=== PATIENT | male | born 1950 | race Caucasian/White ===

== ENCOUNTER 2020-01-26 14:15 | Inpatient (IN) | payer MEDICARE, OTHER ==
[~2020-01-26] VITALS: Ht 172.7 cm; Wt 72.0 kg
[2020-01-26] VITALS (35 sets, daily range): BP systolic 104–128; BP diastolic 45–64
[2020-01-26] MEDS ORDERED: DEXTROSE (50%) 50ML SYRG IV PRN (15:45)
[2020-01-26] MEDS ORDERED: FUROSEMIDE 100 MG/10ML VIAL IV ONE (16:15)
--- NOTE | 2020-01-26 16:22 | NUR ---
Per Pharmacy, no replacement for patients gout medicine Uloric since usually they are on this medication if they cannot tolerate allopurinol.
[2020-01-26] MEDS: InsuLIN REG 1unit/0.01ml Soln (100units/ml) SC SCH ×2 (17:00→23:56)
[2020-01-26] MEDS: SODIUM CHLORIDE 0.9% 1,000 ML IV SCH (17:00)
[2020-01-26] MEDS: ACCU-CHEK COMFORT CURVE STRIP VI SCH ×2 (17:00→23:55)
[2020-01-26 17:25] LABS: Basophils # (auto) 0 10 ^3/uL (0-0.2); Basophils % (auto) 0.2 % (0.0-2.0); Eosinophils # (auto) 0 10 ^3/uL (0-0.8); Hematocrit 29.8 % (41.0-53.0); Hemoglobin 9.9 g/dL (13.5-17.5); Lymphocytes # (auto) 0.2 10 ^3/uL (0.4-5.4); Lymphocytes % (auto) 4.1 % (10.0-50.0); Mean Corpuscular Hemoglobin 32.6 pg (28.0-32.0); Mean Corpuscular Hgb Conc. 33.1 g/dL (32.0-36.0); Mean Corpuscular Volume 98.2 fL (80.0-100.0); Monocytes # (auto) 0.5 10 ^3/uL (0-1.3); Monocytes % (auto) 10.1 % (0.0-12.0); Neutrophils # (auto) 4.6 10 ^3/uL (1.6-8.6); Neutrophils % (auto) 85.6 % (37.0-80.0); Platelet Count (auto) 144 10^3/uL (140-450); Red Blood Cells 3.04 10^6/uL (4.5-5.90); Red Cell Distribution Width 15.9 % (11.8-14.3); White Blood Cell 5.4 10^3/uL (4.4-10.8)
[2020-01-26 17:44] LABS: BUN/Creatinine Ratio 21.6; Calcium 8.3 mg/dL (8.5-10.1); Phosphorus 4.4 mg/dL (2.5-4.90); Potassium 4.9 mmol/L (3.5-5.1)
--- NOTE | 2020-01-26 19:00 | NUR ---
Report given to Karime PRITCHETT Endorsed care, patient on NC 8 L RR 20 SPO2 98% in no signs of distress, sleeping upright in bed. Patient recent transfer from [facility] per Dr. Bates. Calls x3 to Dr. Michelle, patient primary physician for admit orders. No call back. Dr. Bates did over the phone medication reconciliation list from [facility]. Per Pharmacy could not put in GOUT medicine with no replacment. RN held Insulin because patient did not eat dinner, and patient has diabetic pump - did not want to make patient hypoglycemic, endorsed to jennifer PRITCHETT for assessment. Patient had fever of 102 at ER in [facility], negative COVID rapid, recommended post chest xray results possible PCR in house for safety. Patient has phone bedside, son is contact and has brought patient belongings as requested. Patient had uppper/lower dentures in mouth. Patient belongings endorsed to keiry PRITCHETT.
--- NOTE | 2020-01-26 19:08 | NUR ---
RN called Dr. Bello, for critical lab result .
--- NOTE | 2020-01-26 19:45 | NUR ---
Opening Shift Note received report from Dave PRITCHETT. Pt is AAOx4, sitting up in bed watching TV. Pt oriented to staff and POC. Pt is good historian. Pt stated he went to [facility] due to progressively increased SOB. Pt states he is on home o2 at 3L. Pt states these episodes of SOB have happened before due to his CHF and COPD. Pt's pertinent history is CAD, CHF, COPD, DM, HTN. Pt had Nancy test at [facility] which was negative. Pt placed on airborne precautions and [facility] in house COVID test sent to lab per protocol. Pt denies any SOB at the moment and is currently at 8L NC with an spo2 of 96%. Pt denies any pain and any other complaints at this time. Bed is locked at lowest position, side rails are up. Will continue to monitor Addendum: 01/27/20 at 0043 by ELICEO FLOREZ RN RN Pt has device to tight lower abdomen. Per patient this is a "[email or web address]" and it measures his blood sugars at home
--- NOTE | 2020-01-26 21:27 | NUR ---
returned call went over all admission orders already in place from Dr. Bates and Dr. Bynum, no changes. New orders for pain and Nausea, standard.
[2020-01-26] MEDS ORDERED: ONDANSETRON HCL 4 MG/2 ML VIAL IV PRN (21:30)
[2020-01-26] MEDS ORDERED: NITROGLYCERIN 0.4 MG SL TAB SL PRN (21:30)
[2020-01-26] MEDS ORDERED: MORPHINE SULF INJ 2 MG/ML SYRINGE 1ML IV PRN (21:30)
[2020-01-26] MEDS: SODIUM BICARBONATE 650 MG TAB PO SCH (21:43)
[2020-01-26] MEDS: CARVEDILOL 3.125 MG TAB PO SCH (21:44)
[2020-01-26] MEDS: ATORVASTATIN 20 MG TAB PO SCH (21:44)
[2020-01-26] MEDS: cefTRIAXone 1GM/50ML D5W 50 ML IV SCH (21:55)
--- NOTE | 2020-01-26 21:56 | NUR ---
BS 200
[2020-01-26] MEDS ORDERED: cefTRIAXone SOD 500 MG VL IV ONE (22:00)
--- NOTE | 2020-01-26 23:01 | NUR ---
COVID test and Urine sent to lab
[2020-01-26 23:29] LABS: Urine Bacteria NONE SEEN /hpf (None Seen); Urine Blood 1+ /uL (Negative); Urine Specific Gravity 1.012 (1.001-1.035); Urine WBC 2 /hpf (0 - 3)
[2020-01-26 23:44] LABS: Protein, Urine 105.5 mg/dL (0.0-11.9)
[2020-01-27] VITALS (92 sets, daily range): BP systolic 101–138; BP diastolic 36–97
--- NOTE | 2020-01-27 00:41 | NUR ---
TORIBIO Mix [phone]
--- NOTE | 2020-01-27 00:42 | NUR ---
Patients phone number [phone]
--- NOTE | 2020-01-27 00:49 | NUR ---
Valuables form completed at this time
--- NOTE | 2020-01-27 01:28 | NUR ---
Linen Change Refusal Pt stated he did not want a linen change or bath at this time.
--- NOTE | 2020-01-27 04:30 | NUR ---
Blood drawn and sent to lab
--- NOTE | 2020-01-27 05:00 | NUR ---
Complete linen change completed, new gown provided. Denture cup, mouthwash, toothbrush and chap stick provided per patient request.
--- NOTE | 2020-01-27 05:05 | NUR ---
Pt out of bed to chair Pt tolerated well. Spo2 >95%. Steady gait. Will continue to monitor.
[2020-01-27 05:07] LABS: Basophils # (auto) 0 10 ^3/uL (0-0.2); Basophils % (auto) 0.4 % (0.0-2.0); Eosinophils # (auto) 0 10 ^3/uL (0-0.8); Hemoglobin 8.3 g/dL (13.5-17.5); Monocytes # (auto) 0.5 10 ^3/uL (0-1.3); Neutrophils # (auto) 4.1 10 ^3/uL (1.6-8.6)
[2020-01-27 05:09] LABS: Hematocrit 24.2 % (41.0-53.0); Lymphocytes # (auto) 0.2 10 ^3/uL (0.4-5.4); Lymphocytes % (auto) 4.7 % (10.0-50.0); Mean Corpuscular Hemoglobin 33.2 pg (28.0-32.0); Mean Corpuscular Hgb Conc. 34.2 g/dL (32.0-36.0); Mean Corpuscular Volume 96.9 fL (80.0-100.0); Monocytes % (auto) 10.1 % (0.0-12.0); Neutrophils % (auto) 84.8 % (37.0-80.0); Nucleated Red Blood Cells % 0.3 %; Platelet Count (auto) 122 10^3/uL (140-450); White Blood Cell 4.8 10^3/uL (4.4-10.8)
[2020-01-27 05:26] LABS: % Iron Saturation 4.6 % (20-55); Calcium 7.8 mg/dL (8.5-10.1); Potassium 4.5 mmol/L (3.5-5.1)
[2020-01-27] MEDS: InsuLIN REG 1unit/0.01ml Soln (100units/ml) SC SCH ×4 (06:38→22:19)
[2020-01-27] MEDS: ACCU-CHEK COMFORT CURVE STRIP VI SCH ×4 (06:38→22:20)
[2020-01-27] MEDS: ACETAMINOPHEN 325 MG TAB PO PRN ×2 (06:51→16:31)
[2020-01-27] MEDS: SODIUM CHLORIDE 0.9% 1,000 ML IV SCH (06:53)
--- NOTE | 2020-01-27 07:30 | NUR ---
REPORT REPORT RECEIVED FROM OWEN RNELICEO. VISUALIZED PT THROUGH [facility] [employer] PT IN ISOLATION FOR R/O COVID. PT STATES HE IS "OKAY". CONTINUE TO MONITOR.
--- NOTE | 2020-01-27 08:20 | NUR ---
ASSESSMENT PT AWAKE AND A/O X4. ABLE TO REPOSITION SELF IN BED. MOVES ALL EXTREMITIES WELL. LUNGS CLEAR THROUGHOUT. O2 AT 4 L/M VIA NC WITH O2 SAT OF 99% . TURNED O2 TO 3 L/M AND WILL CONTINUE TO MONITOR. ABD SOFT WITH + BOWEL SOUNDS. LAST BM WAS 01/25. DIAZ CATHETER DRAINING CLEAR YELLOW URINE. PT DENIES ANY PAIN OR SOB. IVF INFUSING WITH IV SITE CLEAR. CONTINUE TO MONITOR.
[2020-01-27] MEDS: cefTRIAXone 1GM/50ML D5W 50 ML IV SCH ×2 (09:03→22:17)
[2020-01-27] MEDS: AZITHROMYCIN 500MG/ 250ML 250 ML IV SCH (09:42)
--- NOTE | 2020-01-27 10:15 | NUR ---
TOWBOAT OPERATOR VISIT PT SEEN AND EXAMINED BY FORREST SALAZAR NP, FOR DR TSE. UPDATED HER ON THE PT'S CURRENT CONDITION AND 2 OF HIS HOME MEDS NOT CURRENTLY ORDERED.
--- NOTE | 2020-01-27 10:20 | NUR ---
MEDS PT GIVEN SCHEDULED MEDS. PT DENIES ANY PAIN OR SOB. CONTINUE TO MONITOR.
[2020-01-27] MEDS: SODIUM BICARBONATE 650 MG TAB PO SCH ×2 (10:45→22:19)
[2020-01-27] MEDS: ASPirin 81 mg TAB PO SCH (10:45)
[2020-01-27] MEDS: CARVEDILOL 3.125 MG TAB PO SCH ×2 (10:46→22:20)
[2020-01-27] MEDS: ISOSORBIDE DINITRATE 10 MG TAB PO SCH (10:46)
[2020-01-27] MEDS: CLOPIDOGREL BISULFATE 75 MG TAB PO SCH (10:47)
[2020-01-27] MEDS ORDERED: FUROSEMIDE 20 MG/2 ML VIAL IV ONE ×2 (11:15)
--- NOTE | 2020-01-27 11:16 | NUR ---
COVID PCR PT'S COVID PCR TEST IS NEGATIVE AND PT TAKEN OFF OF ISOLATION.
--- NOTE | 2020-01-27 12:30 | NUR ---
PT'S ACCUCHECK OF 299 AND PT GIVEN 6 UNITS OF REGULAR INSULIN SQ. DIAZ WITH 130ML UOP. ORDER FOR LASIX 60 MG IV GIVEN. PT SERVED LUNCH.
--- NOTE | 2020-01-27 13:15 | NUR ---
MD/PHONE RECEIVED A CALL FROM DR REZA REGARDING NEW CONSULTATION. UPDATED HIM ON THE PT'S REASON FOR ADMISSION AND CURRENT CONDITION.
[2020-01-27] MEDS ORDERED: OPTISON 3ml Vial for INJ IV ONE (14:11)
--- NOTE | 2020-01-27 14:15 | NUR ---
ECHO IN PROGRESS.
--- NOTE | 2020-01-27 15:46 | NUR ---
MD/PHONE SPOKE WITH DR KEMP AND MADE AWARE OF PT'S ADMISSION AND CURRENT CONDITION. ORDERS RECEIVED FOR BUMEX 2MG IV Q 12HRS.
[2020-01-27 16:38] LABS: INR 1.22 (0.9-1.15); Partial Thromboplastin Time 29.9 sec (23.0-31.2)
[2020-01-27] MEDS: HEPARIN DRIP/D5W 100UNITS/ML 250 ML IV SCH (17:13)
--- NOTE | 2020-01-27 19:47 | NUR ---
REPORT REPORT GIVEN TO MEGAN. WEAVER RN
--- NOTE | 2020-01-27 20:00 | NUR ---
Opening Shift Note: A&Ox4, resting in bed. Patient was transferred from [facility] on 01/26[facility]20. Neuro: moves all extremities: BLE with mild weakness; patient states he uses a cane at baseline, not with patient. Cardio: SR in 70s-80s with BBB/depressed ST/inverted T wave; SBPs 110s-120s; pulses palpable but weak; and nonpitting edema to left foot. Resp: 3LO2 via NC; patient states he wears oxygen prn at home 2-4 L; anterior/lateral bases clear but diminished; patient states productive cough intermittently. GI: renal diet/1200 FR; BS present; last BM per patient was 01/27/20. : mathew inserted on 01/26/20 at [facility]: yellow/clear. Skin: generalized bruising present with no open wounds. IVs: right forearm 18 g inserted on 01/26/20 running heparin at 14 ml/hr; right AC 18 g IID inserted on 01/26/20. Pending multiple laboratory studies at 2300 & 0500/CXR in AM/VQ scan to rule out PE. Will continue to round prn.
--- NOTE | 2020-01-27 22:15 | NUR ---
Dr. Noonan at bedside for pulmonary consultation: new orders received for BLE venous doppler and CT chest without contrast routine.
[2020-01-27] MEDS: ATORVASTATIN 20 MG TAB PO SCH (22:20)
[2020-01-27 23:58] LABS: INR 1.15 (0.9-1.15); Partial Thromboplastin Time 44.6 sec (23.0-31.2)
[2020-01-28] VITALS (81 sets, daily range): BP systolic 113–154; BP diastolic 48–105
--- NOTE | 2020-01-28 | NUR ---
Heparin drip rate increase from 1400 U to 1600 U/Hr per protocol: PTT 44.6. Will continue Q6H PTT draws
[2020-01-28] MEDS: ACETAMINOPHEN 325 MG TAB PO PRN (01:15)
[2020-01-28 04:07] LABS: Basophils # (auto) 0 10 ^3/uL (0-0.2); Basophils % (auto) 0.4 % (0.0-2.0); Eosinophils # (auto) 0.1 10 ^3/uL (0-0.8); Eosinophils % (auto) 1.2 % (0.0-7.0); Hematocrit 25.6 % (41.0-53.0); Hemoglobin 8.8 g/dL (13.5-17.5); Lymphocytes # (auto) 0.3 10 ^3/uL (0.4-5.4); Lymphocytes % (auto) 5.5 % (10.0-50.0); Mean Corpuscular Hgb Conc. 34.5 g/dL (32.0-36.0); Mean Corpuscular Volume 95.8 fL (80.0-100.0); Monocytes # (auto) 0.5 10 ^3/uL (0-1.3); Monocytes % (auto) 8.2 % (0.0-12.0); Neutrophils # (auto) 4.8 10 ^3/uL (1.6-8.6); Neutrophils % (auto) 84.7 % (37.0-80.0); Nucleated Red Blood Cells % 0.1 %; Platelet Count (auto) 138 10^3/uL (140-450); Red Blood Cells 2.67 10^6/uL (4.5-5.90); Red Cell Distribution Width 15.8 % (11.8-14.3); White Blood Cell 5.6 10^3/uL (4.4-10.8)
[2020-01-28 04:54] LABS: Albumin 2.7 g/dL (3.4-5.0); Chloride 105 mmol/L (98-107); Potassium 4.4 mmol/L (3.5-5.1); Sodium 135 mmol/L (136-145)
[2020-01-28 05:06] LABS: Alanine Aminotransferase 11 U/L (16-61); Alkaline Phosphatase 73 U/L (45-117); Anion Gap 7 (5-15); Aspartate Aminotransferase 13 U/L (15-37); BUN/Creatinine Ratio 24.6; Bilirubin, Total 0.9 mg/dL (0.2-1.0); Calcium 8.1 mg/dL (8.5-10.1); Carbon Dioxide 23 mmol/L (21-32); Cholesterol 65 mg/dL (< 200); GFR African American 21 mL/min; GFR Non-African American 17 mL/min; Glucose 199 mg/dL (74-106); HDL Cholesterol 37 mg/dL (40-59); LDL Cholesterol 23 mg/dL (< 100); Lactate Dehydrogenase 154 U/L (87-241); Total Protein 7.2 g/dL (6.4-8.2); Triglycerides 96 mg/dL (< 150)
[2020-01-28 05:20] LABS: CRP High Sensitivity > 19 mg/dL (< 0.3)
[2020-01-28 05:23] LABS: Blood Urea Nitrogen 93 mg/dL (7-18)
[2020-01-28] MEDS: InsuLIN REG 1unit/0.01ml Soln (100units/ml) SC SCH ×4 (05:24→21:16)
[2020-01-28] MEDS: ACCU-CHEK COMFORT CURVE STRIP VI SCH ×4 (05:25→21:16)
[2020-01-28 06:31] LABS: INR 1.08 (0.9-1.15); Partial Thromboplastin Time 44.3 sec (23.0-31.2)
--- NOTE | 2020-01-28 06:54 | NUR ---
Heparin increased from 16 U/HR to 18 U/HR per protocol. PTT is 44.3
[2020-01-28] MEDS: HEPARIN DRIP/D5W 100UNITS/ML 250 ML IV SCH (06:55)
--- NOTE | 2020-01-28 07:05 | NUR ---
Assumed care of pt., report received per YARELY Murphy. No distress noted, pt. reading sinus rhythm /c occ. PAC's, will cont.to monitor for any changes, call pena in reach, assessment ongoing.
[2020-01-28] MEDS: HYDROcodone-ACET 5/325MG TAB PO PRN ×2 (08:31→21:16)
[2020-01-28] MEDS: AZITHROMYCIN 500MG/ 250ML 250 ML IV SCH (10:12)
[2020-01-28] MEDS: cefTRIAXone 1GM/50ML D5W 50 ML IV SCH ×2 (10:12→21:14)
[2020-01-28] MEDS: CARVEDILOL 3.125 MG TAB PO SCH ×2 (10:13→21:15)
[2020-01-28] MEDS: ASPirin 81 mg TAB PO SCH (10:13)
[2020-01-28] MEDS: SODIUM BICARBONATE 650 MG TAB PO SCH ×2 (10:13→21:15)
[2020-01-28] MEDS: CLOPIDOGREL BISULFATE 75 MG TAB PO SCH (10:13)
[2020-01-28] MEDS: ISOSORBIDE DINITRATE 10 MG TAB PO SCH (10:16)
[2020-01-28 11:39] LABS: Hepatitis A Ab IgM Negative; Hepatitis B Core IgM Negative; Hepatitis B Surface Antigen Negative (Negative); Hepatitis C Antibody Negative (Negative)
[2020-01-28] MEDS ORDERED: BUMETANIDE 2.5mg/10ml (0.25 mg/ml) INJ IV ONE (11:45)
[2020-01-28 13:40] LABS: INR 1.08 (0.9-1.15)
[2020-01-28] MEDS ORDERED: NIFEdipine ER 30 MG TAB PO ONE (16:30)
[2020-01-28] MEDS: Ensure Enlive Strawberry 8oz Bottle PO SCH (18:00)
[2020-01-28] MEDS ORDERED: ALBUTEROL SULF 2.5 MG/0.5ML(0.5%) NEB SOLN NEB PRN (18:45)
[2020-01-28] MEDS: ENSURE CLEAR Apple 8oz Carton PO SCH (18:48)
--- NOTE | 2020-01-28 19:05 | NUR ---
No distress noted, pt. report given to YARELY Murphy. Care of pt. assumed per NOC RN. Dayshift RN relinquished care and signed off.
--- NOTE | 2020-01-28 19:20 | NUR ---
Opening Shift Note: A&Ox4, resting in bed. Patient was transferred from [facility] on 01/26/20. Neuro: moves all extremities: BLE with mild weakness; patient states he uses a cane at baseline, not with patient. Cardio: SR in 80s with BBB/depressed ST/inverted T wave; SBPs 140s; pulses palpable but weak; and nonpitting edema to left foot. Resp: 3LO2 via NC; patient states he wears oxygen prn at home 2-4 L; anterior/lateral bases clear but diminished; patient states productive cough intermittently. GI: renal diet/1200 FR; BS present; last BM per patient was 01/27/20. : mathew inserted on 01/26/20 at [facility]: yellow/clear. Skin: generalized bruising present with no open wounds. IVs: right forearm 18 g inserted on 01/26/20 running heparin at 14 ml/hr; right AC 18 g IID inserted on 01/26/20. Pending CBC @ 0500/VQ scan to rule out PE/dietary consultation. Patient does have a downgrade order to telemetry unit when bed available. Will continue to round prn. Addendum: 01/28/20 at 2336 by EUGENIO GAONA RN 18g in right forearm IID; no heparin running at this time
[2020-01-28] MEDS ORDERED: EPOETIN ALFA 10,000 UNIT/1 ML VIAL SC ONE (21:00)
[2020-01-28] MEDS: BUMETANIDE 2.5mg/10ml (0.25 mg/ml) INJ IV SCH (21:14)
[2020-01-28] MEDS: methylPREDNISolone SOD SUCC 40 MG/ML VL IV SCH (21:14)
[2020-01-28] MEDS: HEPARIN SODIUM (PORCINE) 5000 UNITS/ML 1ML VIAL SC SCH (21:15)
[2020-01-28] MEDS: ATORVASTATIN 20 MG TAB PO SCH (21:15)
[2020-01-29] VITALS (34 sets, daily range): BP systolic 115–146; BP diastolic 38–67
[2020-01-29] MEDS: ACETAMINOPHEN 325 MG TAB PO PRN (00:15)
[2020-01-29 03:58] LABS: Basophils # (auto) 0 10 ^3/uL (0-0.2); Basophils % (auto) 0.2 % (0.0-2.0); Eosinophils # (auto) 0 10 ^3/uL (0-0.8); Eosinophils % (auto) 0.2 % (0.0-7.0); Hematocrit 28.3 % (41.0-53.0); Hemoglobin 9.6 g/dL (13.5-17.5); Lymphocytes # (auto) 0.2 10 ^3/uL (0.4-5.4); Lymphocytes % (auto) 3.5 % (10.0-50.0); Mean Corpuscular Hemoglobin 32.6 pg (28.0-32.0); Mean Corpuscular Hgb Conc. 33.8 g/dL (32.0-36.0); Mean Corpuscular Volume 96.3 fL (80.0-100.0); Monocytes # (auto) 0.1 10 ^3/uL (0-1.3); Monocytes % (auto) 2.3 % (0.0-12.0); Neutrophils # (auto) 4.1 10 ^3/uL (1.6-8.6); Neutrophils % (auto) 93.8 % (37.0-80.0); Nucleated Red Blood Cells % 0.4 %; Platelet Count (auto) 157 10^3/uL (140-450); Red Blood Cells 2.94 10^6/uL (4.5-5.90); Red Cell Distribution Width 15.3 % (11.8-14.3); White Blood Cell 4.4 10^3/uL (4.4-10.8)
[2020-01-29] MEDS: InsuLIN REG 1unit/0.01ml Soln (100units/ml) SC SCH ×2 (05:45→11:57)
[2020-01-29] MEDS: ACCU-CHEK COMFORT CURVE STRIP VI SCH ×4 (06:07→21:55)
--- NOTE | 2020-01-29 06:45 | NUR ---
Respiratory note: PT ASSESSED FOR PRN TX HR 69, RR 16, POX 99% ON 3L NASAL CANNULA, BS ARE CLEAR. NO SOB OR DISTRESS NOTED. PT WAS NOTIFY TO HAVE RN PAGE RT FOR MN TX.
[2020-01-29] MEDS: ENSURE CLEAR Apple 8oz Carton PO SCH ×2 (08:00→12:00)
[2020-01-29] MEDS: Ensure Enlive Strawberry 8oz Bottle PO SCH ×2 (08:00→12:00)
--- NOTE | 2020-01-29 09:17 | NUR ---
Resumed care at 0715, orders reviewed and ongoing assessments being done. Being treated for multiple problems. Upon arrival in bed in no acute distress and interacting appropriately. Has been downgraded to Telemetry, no bed available at this time. Reviewed plan of care, comprehensive. Assisted out of bed to chair without difficulty and able to participate with self care. Ate 40% of breakfast and declined the supplemental drink, Ensure. Dr. Long, athletic monitor rounded at 0744. Questioned why VQ scan had not been done. Per Dr. Michelle's HIDE TANNER, Lisbeth Rawls, VQ scan was cancelled due to patient respiratory status improvement (see progress note). Per Dr. Long will make his recommendations. Continues to sit in chair in no acute distress.
[2020-01-29] MEDS: ASPirin 81 mg TAB PO SCH (10:10)
[2020-01-29] MEDS: SODIUM BICARBONATE 650 MG TAB PO SCH ×2 (10:10→21:54)
[2020-01-29] MEDS: CLOPIDOGREL BISULFATE 75 MG TAB PO SCH (10:10)
[2020-01-29] MEDS: CARVEDILOL 3.125 MG TAB PO SCH ×2 (10:10→22:28)
[2020-01-29] MEDS: ISOSORBIDE DINITRATE 10 MG TAB PO SCH (10:11)
[2020-01-29] MEDS: methylPREDNISolone SOD SUCC 40 MG/ML VL IV SCH (10:25)
[2020-01-29] MEDS: BUMETANIDE 2.5mg/10ml (0.25 mg/ml) INJ IV SCH ×2 (10:25→22:28)
[2020-01-29] MEDS: HEPARIN SODIUM (PORCINE) 5000 UNITS/ML 1ML VIAL SC SCH ×2 (10:27→21:56)
[2020-01-29] MEDS: cefTRIAXone 1GM/50ML D5W 50 ML IV SCH ×2 (10:30→21:54)
[2020-01-29] MEDS: AZITHROMYCIN 500MG/ 250ML 250 ML IV SCH (11:10)
--- NOTE | 2020-01-29 12:08 | NUR ---
Nutrition Consult/assessment Note please see attached link for complete assessment [employer] needs BW 71 [id number] kcals (25-30 kcal/kgBW), Est Protein needs: 57-71 gms/day (0.8-1.0 gm/kgBW r/t elev RFT ckd). Will continue to monitor and reassess prn. Addendum: 01/29/20 at [address] Amended: Links added.
[2020-01-29] MEDS ORDERED: DEXTROSE (50%) 50ML SYRG IV PRN (12:30)
[2020-01-29] MEDS ORDERED: SIMV10TA73 PO (15:02)
[2020-01-29] MEDS ORDERED: CLOP75TA28 PO (15:02)
[2020-01-29] MEDS ORDERED: HYDR50TA15 PO (15:02)
[2020-01-29] MEDS ORDERED: NIFE1TAB30 PO (15:02)
[2020-01-29] MEDS ORDERED: CARV6.25 PO (15:02)
[2020-01-29] MEDS ORDERED: BUME1TAB3 PO (15:02)
[2020-01-29] MEDS ORDERED: ISOS30TA4 PO (15:03)
[2020-01-29] MEDS ORDERED: FERR27TA2 PO (15:35)
[2020-01-29] MEDS ORDERED: CHOL20007 OR (15:35)
[2020-01-29] MEDS ORDERED: FAMO20TA10 PO (15:35)
[2020-01-29] MEDS ORDERED: ASPI81CH43 PO (15:35)
[2020-01-29] MEDS ORDERED: FENO54TA4 PO (15:35)
[2020-01-29] MEDS ORDERED: INSUINJ18 SC (15:35)
[2020-01-29] MEDS ORDERED: SITA50TA PO (15:35)
[2020-01-29] MEDS ORDERED: INSU75IN2 SC ×2 (15:35)
[2020-01-29] MEDS ORDERED: GABA100C9 PO (15:35)
[2020-01-29] MEDS ORDERED: TURM500C3 OR (15:35)
[2020-01-29] MEDS ORDERED: FEBU40TA PO (15:35)
[2020-01-29] MEDS ORDERED: TIOTCAP IN (15:35)
[2020-01-29] MEDS ORDERED: FAMOTIDINE 20 MG TAB ONE (16:28)
[2020-01-29] MEDS ORDERED: FAMOTIDINE 20 MG TAB PO ONE (16:30)
[2020-01-29] MEDS ORDERED: InsuLIN REG 1unit/0.01ml Soln (100units/ml) SC SCH ×2 (17:00→22:00)
--- NOTE | 2020-01-29 17:27 | NUR ---
Attempted to contact Dr. Michelle at 1150 and 1245 to report increase in glucose level. Noon accaria 499. caridad Rawls TELEVISION REPORTER in at 1306, rounding for Dr. Delaney. Discussed condition and plan of care and reviewed new orders. Will restart on patient's home dose of Humalog insulin. Changes made to diet, glucose control. Has been resting in bed and able to move about in bed by self. Walked around nurses station with Colin PT, in no acute distress or changes in vital signs.
[2020-01-29] MEDS: INSULIN 70/30 1unit/0.01ml Susp (100units/ml) SC SCH (17:40)
[2020-01-29] MEDS: Glucerna Carbsteady SHAKE Vanilla 8oz PO SCH (18:00)
--- NOTE | 2020-01-29 18:37 | NUR ---
ICU patient trans to floor Received report from ICU nurse Radha. DONY MONROE transferred to [facility] via wheelchair on portable 02. All patient personal belongings transferred with patient to receiving floor. Vital signs BP 142/72, RR 20, Temp 97.8, HR 79, O2 97%. Patient on 3L NC no sign of respiratory distress or SOB. No pain reported at this time. Pulses are palpable and there is mild edema noted in both feet. Lopez in tact draining clear yellow urine. Skin is in tact and there is an Optifoam dressing placed for prevention purposes. Safety measures in place and the call light is within reach.
--- NOTE | 2020-01-29 19:12 | NUR ---
Transferred to room 285 A without incident. All belongings accounted for and taken. Transported by wheelchair. Arrived alert and oriented in no acute distress. Report given to Jeanna PRITCHETT prior to transfer.
[2020-01-29] MEDS: ATORVASTATIN 20 MG TAB PO SCH (21:56)
[2020-01-30 05:00] VITALS: BP 124/62
[2020-01-30] MEDS: ACCU-CHEK COMFORT CURVE STRIP VI SCH ×3 (06:28→17:00)
--- NOTE | 2020-01-30 07:30 | NUR ---
Opening Shift Note Assumed care of patient, awake and alert. No S/S of distress/SOB or pain. Instructed on POC and to call for assist PRN, will continue to monitor for changes Q1hr and PRN. Fall precautions in place per safety protocol.
[2020-01-30] MEDS ORDERED: INSULIN 70/30 1unit/0.01ml Susp (100units/ml) SC SCH (08:00)
[2020-01-30] MEDS: Glucerna Carbsteady SHAKE Vanilla 8oz PO SCH ×3 (08:16→18:00)
[2020-01-30 09:00] VITALS: BP 130/72
[2020-01-30] MEDS: cefTRIAXone 1GM/50ML D5W 50 ML IV SCH (09:35)
[2020-01-30] MEDS: BUMETANIDE 2.5mg/10ml (0.25 mg/ml) INJ IV SCH (09:35)
[2020-01-30] MEDS: ASPirin 81 mg TAB PO SCH (09:35)
[2020-01-30] MEDS: CARVEDILOL 3.125 MG TAB PO SCH (09:36)
[2020-01-30] MEDS: ISOSORBIDE DINITRATE 10 MG TAB PO SCH (09:36)
[2020-01-30] MEDS: SODIUM BICARBONATE 650 MG TAB PO SCH (09:36)
[2020-01-30] MEDS: CLOPIDOGREL BISULFATE 75 MG TAB PO SCH (09:37)
[2020-01-30] MEDS: HEPARIN SODIUM (PORCINE) 5000 UNITS/ML 1ML VIAL SC SCH (09:37)
[2020-01-30] MEDS ORDERED: FAMOTIDINE 20 MG TAB PO SCH (10:00)
[2020-01-30] MEDS: AZITHROMYCIN 500MG/ 250ML 250 ML IV SCH (10:20)
--- NOTE | 2020-01-30 11:50 | NUR ---
Cardiology MD Long at bedside, aware of patient status. Per MD Long patient is cleared for discharge from cardiology standpoint. Will cont to monitor patient.
[2020-01-30 13:00] VITALS: BP 121/64
[2020-01-30 14:13] LABS: BUN/Creatinine Ratio 28.4; Calcium 8.9 mg/dL (8.5-10.1); Potassium 4.1 mmol/L (3.5-5.1)
--- NOTE | 2020-01-30 14:58 | NUR ---
[facility] Spoke to MD Rawls regarding patient Critical Bun levels and no sliding scale for BS coverage during the day with constant BS readings in the 300's . No new orders received at this time. Will cont to monitor patient.
--- NOTE | 2020-01-30 16:15 | NUR ---
assessment Patient has no post discharge needs identified at this time. Addendum: 01/30/20 at 1615 by Gloria WHITTAKER Amended: Links added.
[2020-01-30 17:00] VITALS: BP 139/76
[2020-01-30] MEDS: INSULIN 70/30 1unit/0.01ml Susp (100units/ml) SC SCH (17:35)
--- NOTE | 2020-01-30 17:35 | NUR ---
Mathew catheter dc'd Order to discontinue mathew catheter. Mathew dc'd with clean technique following deflation of balloon. Patient tolerated well with no complaints of pain. Continue care.
--- NOTE | 2020-01-30 18:30 | NUR ---
Patient urinated at this time after mathew discontinued. Per MD orders, patient may be discharged. Will carry out orders.
--- NOTE | 2020-01-30 19:04 | NUR ---
PT FOUND ON ROOM AIR WITH SPO2 AT 88%. PT PLACED ON 3L NC - SPO2 92%, HR 102. PT DENIES ANY RESPIRATORY DISTRESS. NO TX INDICATED AT THIS TIME. PT IS AWARE TO HAVE RT PAGED IF TX NEEDED.
--- NOTE | 2020-01-30 19:27 | NUR ---
Endorsed care Endorsed care to night RN Kelly. Kelly aware of discharge orders. Most of discharge paperwork done. Kelly provided with follow-up appointment informations to provide to patient for patient to call and make appointments with PCP, Cardiology, Nephrology, and Pulmonology. Kelly verbalized understanding.
--- NOTE | 2020-01-30 19:30 | NUR ---
Received report from day shift RN that patient will has discharge orders. Discharge papers has to be completed. Care assumed.
--- NOTE | 2020-01-30 21:00 | NUR ---
Discharge instructions given as ordered by charge coordinator Imelda. Encourage to follow up with PMD as instructed. All questions and concerns addressed. Patient verbalized understanding. Medication reconciliation form completed and copy given to patient. No home medications held in Pharmacy, patient verbalized vaccines needed will be obtained from his primary physician. IV removed with catheter intact, pressure dressing applied, patient voiding freely. Telemetry unit returned to ICU. Patient taken to vehicle via wheelchair with all personal belongings, accompanied by charge coordinator Imelda, met by patient's son Dominguez. No distress noted at time of departure.
== END 2020-01-30 21:00 | disposition home or self-care (01) | DRG 177 ==
LOC: ICU WEST 14:15 → TELE-WESTW 01-29 18:54
PROVIDERS: ADMIT Specialist; ATTEND Specialist
DX: J15.6 Pneumonia due to other Gram-negative bacteria (principal); J96.21 Acute and chronic respiratory failure with hypoxia; I50.41 Acute combined systolic (congestive) and diastolic (congestive) heart failure; I13.2 Hypertensive heart and chronic kidney disease with heart failure and with stage 5 chronic kidney disease, or end stage renal disease; N17.9 Acute kidney failure, unspecified; J44.0 Chronic obstructive pulmonary disease with (acute) lower respiratory infection; R18.8 Other ascites; J44.1 Chronic obstructive pulmonary disease with (acute) exacerbation; N18.5 Chronic kidney disease, stage 5; E87.2 Acidosis; E44.1 Mild protein-calorie malnutrition; E11.22 Type 2 diabetes mellitus with diabetic chronic kidney disease; E78.5 Hyperlipidemia, unspecified; E79.0 Hyperuricemia without signs of inflammatory arthritis and tophaceous disease; Z20.828 Contact with and (suspected) exposure to other viral communicable diseases; I25.10 Atherosclerotic heart disease of native coronary artery without angina pectoris; R16.1 Splenomegaly, not elsewhere classified; E11.51 Type 2 diabetes mellitus with diabetic peripheral angiopathy without gangrene; D63.1 Anemia in chronic kidney disease; I44.7 Left bundle-branch block, unspecified; Z95.1 Presence of aortocoronary bypass graft; Z79.4 Long term (current) use of insulin; Z99.81 Dependence on supplemental oxygen; Z79.02 Long term (current) use of antithrombotics/antiplatelets; Z79.82 Long term (current) use of aspirin; Z87.891 Personal history of nicotine dependence; Z95.5 Presence of coronary angioplasty implant and graft; Z79.899 Other long term (current) drug therapy
CPT/HCPCS: 36415; 36600; 71045; 71046; 71250; 80048; 80053; 80061; 80074; 81001; 82570; 82728; 82805; 82962; 83036; 83540; 83550; 83615; 83880; 83970; 84100; 84156; 84443; 84484; 84550; 85025; 85379; 85610; 85730; 86141; 87081; 93005; 93306; 93970; 96361; 96374; 97110; 97116; G0378; J0696; J0885; J1815; Q9956